=== PATIENT | male | born 1985 | race Caucasian/White ===

== ENCOUNTER 2018-08-01 23:19 | Emergency (ER) | payer SELFPAY ==
[~2018-08-01] VITALS: Ht 165.1 cm; Wt 62.7 kg
[2018-08-01] MEDS ORDERED: DiphenhydrAMINE HCL 50 MG/ML VIAL IM ONE (23:30)
[2018-08-01] MEDS ORDERED: LORazepam 2 MG/ML VIAL IM ONE (23:30)
[2018-08-01] MEDS ORDERED: HALOPERIDOL LACTATE 5 MG/ML VIAL IM ONE (23:30)
[2018-08-01 23:39] LABS: GLUCOSE,POINT OF CARE 90 MG/DL (70-110)
[2018-08-01 23:59] LABS: BASOPHILS % (AUTO) 0.6 % (0.0-2.0); EOSINOPHILS % (AUTO) 0.6 % (1.0-6.0); HEMATOCRIT 40.1 % (41-53); HEMOGLOBIN 14.1 g/dL (13.5-17.5); LYMPHOCYTES # (AUTO) 3.1 K/uL (1.0-4.8); MEAN CORPUSCULAR HEMOGLOBIN 30.7 pg (26.0-34.0); MEAN CORPUSCULAR HGB CONC 35.1 G/dL (31.0-37.0); MEAN CORPUSCULAR VOLUME 88 fL (80-100); MONOCYTES # (AUTO) 0.5 K/uL (0.1-1.0); MONOCYTES % (AUTO) 7.7 % (2.0-9.0); NEUTROPHILS # (AUTO) 3.2 K/uL (1.8-7.7); NEUTROPHILS % (AUTO) 46.1 % (40.0-70.0); PLATELET COUNT (AUTO) 213 K/uL (150-450); RED BLOOD CELL COUNT(AUTO) 4.58 MIL/uL (4.50-5.90); RED CELL DISTRIBUTION WIDTH 12.9 % (11.5-14.5)
[2018-08-02 00:17] LABS: ALANINE AMINOTRANSFERASE 28 U/L (12-78); ALBUMIN 3.9 g/dL (3.4-5.0); ALKALINE PHOSPHATASE 103 U/L (46-116); ANION GAP 15 mmol/L (8-16); ASPARTATE AMINOTRANSFERASE 25 U/L (15-37); BILIRUBIN,TOTAL 0.4 mg/dL (0.1-1.0); CARBON DIOXIDE 24 mmol/L (22-29); CHLORIDE 104 mmol/L (98-107); CREATININE 0.93 mg/dL (0.60-1.30); GLOMERULAR FILTR. RATE CALC > 60 mL/min (>60); GLUCOSE,RANDOM 98 mg/dL (70-110); SODIUM SERUM 143 mmol/L (136-145); TOTAL PROTEIN, SERUM 8.1 g/dL (6.4-8.2); UREA NITROGEN, BLOOD 7 mg/dL (7-18)
[2018-08-02 02:28] LABS: APPEARANCE,URINE CLEAR (CLEAR); BILIRUBIN,URINE NEGATIVE (NEGATIVE); GLUCOSE, URINE (UA) NEGATIVE (NEGATIVE); KETONES,URINE NEGATIVE (NEGATIVE); LEUKOCYTE ESTERASE ,URINE NEGATIVE (NEGATIVE); NITRATE,URINE NEGATIVE (NEGATIVE); OCCULT BLOOD,URINE NEGATIVE (NEGATIVE); PH,URINE 6.5 (5.0-8.0); PROTEIN,URINE NEGATIVE (NEGATIVE); UROBILINOGEN,URINE 0.2 mg/dL (<=1.0)
[2018-08-02 02:32] LABS: AMPHET/METH SCREEN,URINE POSITIVE (NEGATIVE); BARBITURATE SCREEN, URINE POSITIVE (NEGATIVE); BENZODIAZEPINES SCREEN,URINE NEGATIVE (NEGATIVE); CANNABINOID SCREEN,URINE NEGATIVE (NEGATIVE); COCAINE SCREEN,URINE POSITIVE (NEGATIVE); METHADONE SCREEN, URINE NEGATIVE (NEGATIVE); OPIATE SCREEN,URINE NEGATIVE (NEGATIVE)
[2018-08-02 02:33] LABS: PHENCYCLIDINE SCREEN,URINE NEGATIVE (NEGATIVE)
[2018-08-02 02:45] LABS: BACTERIA,URINE None Seen /HPF (None Seen); RBC,URINE 0-2 /HPF (0-2); WBC,URINE None Seen /HPF (0-5)
[2018-08-02] MEDS ORDERED: HALOPERIDOL 5 MG TABLET PO ONE (02:45)
[2018-08-02] MEDS ORDERED: POTASSIUM CHLORIDE 10% 40 MEQ/30 ML LIQUID UDCUP PO ONE (05:45)
[2018-08-02 12:00] VITALS: BP 126/64
== END 2018-08-02 12:14 | disposition home or self-care (01) ==
LOC: EMS 23:22
DX: F22 Delusional disorders (principal); F41.9 Anxiety disorder, unspecified; E87.6 Hypokalemia; F10.129 Alcohol abuse with intoxication, unspecified; F15.10 Other stimulant abuse, uncomplicated; F14.10 Cocaine abuse, uncomplicated; F17.210 Nicotine dependence, cigarettes, uncomplicated; Z59.0 Homelessness; Y90.7 Blood alcohol level of 200-239 mg/100 ml
CPT/HCPCS: 36415; 80053; 80307; 81001; 82962; 85025; 96372; 99284; 99406; G0480; J1630; 51701; J1200; J2060

== ENCOUNTER 2018-08-24 20:39 | Emergency (ER) | payer MEDICAID ==
[~2018-08-24] VITALS: Ht 172.7 cm; Wt 59.1 kg
[2018-08-24] MEDS ORDERED: SERT50TA12 PO (20:52)
[2018-08-24] MEDS ORDERED: OMEP20 PO (20:52)
[2018-08-24] MEDS ORDERED: LIB5 PO (20:52)
[2018-08-24 22:32] VITALS: BP 120/80
== END 2018-08-24 22:46 | disposition home or self-care (01) ==
LOC: EMS 20:39
DX: F10.10 Alcohol abuse, uncomplicated (principal); F17.210 Nicotine dependence, cigarettes, uncomplicated; F14.90 Cocaine use, unspecified, uncomplicated; F19.90 Other psychoactive substance use, unspecified, uncomplicated

== ENCOUNTER 2019-02-13 02:38 | Emergency (ER) | payer MEDICAID, OTHER ==
[~2019-02-13] VITALS: Ht 165.1 cm; Wt 50.0 kg
[~2019-02-13 02:38] MED LIST: LIB5 PO; OMEP20 PO; SERT50TA12 PO
[2019-02-13 04:12] LABS: BASOPHILS % (AUTO) 0.7 % (0.0-2.0); EOSINOPHILS % (AUTO) 0.3 % (1.0-6.0); HEMATOCRIT 38.5 % (41-53); HEMOGLOBIN 13.4 g/dL (13.5-17.5); LYMPHOCYTES # (AUTO) 2.1 K/uL (1.0-4.8); LYMPHOCYTES % (AUTO) 24.8 % (22.0-44.0); MEAN CORPUSCULAR HEMOGLOBIN 31.5 pg (26.0-34.0); MEAN CORPUSCULAR HGB CONC 34.9 G/dL (31.0-37.0); MEAN CORPUSCULAR VOLUME 90 fL (80-100); MONOCYTES # (AUTO) 0.7 K/uL (0.1-1.0); MONOCYTES % (AUTO) 7.9 % (2.0-9.0); NEUTROPHILS # (AUTO) 5.5 K/uL (1.8-7.7); NEUTROPHILS % (AUTO) 66.3 % (40.0-70.0); PLATELET COUNT (AUTO) 206 K/uL (150-450); RED BLOOD CELL COUNT(AUTO) 4.26 MIL/uL (4.50-5.90); RED CELL DISTRIBUTION WIDTH 13.1 % (11.5-14.5)
[2019-02-13 04:20] LABS: ANION GAP 12 mmol/L (8-16); CALCIUM, TOTAL 8.5 mg/dL (8.8-10.5); CARBON DIOXIDE 24 mmol/L (22-29); CHLORIDE 103 mmol/L (98-107); CREATININE 1.05 mg/dL (0.60-1.30); GLOMERULAR FILTR. RATE CALC > 60 mL/min (>60); GLUCOSE,RANDOM 94 mg/dL (70-110); POTASSIUM 3.6 mmol/L (3.5-5.1); SODIUM SERUM 139 mmol/L (136-145); UREA NITROGEN, BLOOD 16 mg/dL (7-18)
[2019-02-13 04:27] LABS: ALANINE AMINOTRANSFERASE 22 U/L (12-78); ALBUMIN 3.8 g/dL (3.4-5.0); ALKALINE PHOSPHATASE 101 U/L (46-116); ASPARTATE AMINOTRANSFERASE 23 U/L (15-37); BILIRUBIN,TOTAL 0.4 mg/dL (0.1-1.0); TOTAL PROTEIN, SERUM 7.7 g/dL (6.4-8.2)
[2019-02-13 11:34] LABS: AMPHET/METH SCREEN,URINE POSITIVE (NEGATIVE); BARBITURATE SCREEN, URINE NEGATIVE (NEGATIVE); BENZODIAZEPINES SCREEN,URINE POSITIVE (NEGATIVE); CANNABINOID SCREEN,URINE NEGATIVE (NEGATIVE); COCAINE SCREEN,URINE NEGATIVE (NEGATIVE); METHADONE SCREEN, URINE NEGATIVE (NEGATIVE); OPIATE SCREEN,URINE NEGATIVE (NEGATIVE); PHENCYCLIDINE SCREEN,URINE NEGATIVE (NEGATIVE)
[2019-02-13 12:12] VITALS: BP 121/89
== END 2019-02-13 13:03 | disposition home or self-care (01) ==
LOC: EMS 02:40
DX: S70.11XA Contusion of right thigh, initial encounter (principal); S40.012A Contusion of left shoulder, initial encounter; F10.20 Alcohol dependence, uncomplicated; F17.210 Nicotine dependence, cigarettes, uncomplicated; F11.90 Opioid use, unspecified, uncomplicated; F15.90 Other stimulant use, unspecified, uncomplicated; Z98.890 Other specified postprocedural states; Y29.XXXA Contact with blunt object, undetermined intent, initial encounter; Y93.89 Activity, other specified; Y92.89 Other specified places as the place of occurrence of the external cause; Y99.8 Other external cause status
CPT/HCPCS: 36415; 70450; 71250; 72125; 72192; 73552; 73562; 73590; 74150; 80053; 80307; 85025; 99285; G0480

== ENCOUNTER 2019-02-17 21:49 | Emergency (ER) | payer OTHER ==
[~2019-02-17] VITALS: Ht 162.6 cm; Wt 58.2 kg
[2019-02-17 22:48] LABS: BASOPHILS % (AUTO) 0.7 % (0.0-2.0); EOSINOPHILS % (AUTO) 1.2 % (1.0-6.0); HEMATOCRIT 36.5 % (41-53); HEMOGLOBIN 12.7 g/dL (13.5-17.5); LYMPHOCYTES % (AUTO) 33.5 % (22.0-44.0); MEAN CORPUSCULAR HEMOGLOBIN 31.8 pg (26.0-34.0); MEAN CORPUSCULAR HGB CONC 34.7 G/dL (31.0-37.0); MEAN CORPUSCULAR VOLUME 91 fL (80-100); MONOCYTES # (AUTO) 0.4 K/uL (0.1-1.0); MONOCYTES % (AUTO) 6.9 % (2.0-9.0); NEUTROPHILS # (AUTO) 3.4 K/uL (1.8-7.7); NEUTROPHILS % (AUTO) 57.7 % (40.0-70.0); PLATELET COUNT (AUTO) 254 K/uL (150-450); RED BLOOD CELL COUNT(AUTO) 3.99 MIL/uL (4.50-5.90); RED CELL DISTRIBUTION WIDTH 13.4 % (11.5-14.5)
[2019-02-17 22:59] LABS: ANION GAP 11 mmol/L (8-16); CALCIUM, TOTAL 8.4 mg/dL (8.8-10.5); CARBON DIOXIDE 25 mmol/L (22-29); CHLORIDE 104 mmol/L (98-107); CREATININE 0.97 mg/dL (0.60-1.30); GLOMERULAR FILTR. RATE CALC > 60 mL/min (>60); GLUCOSE,RANDOM 120 mg/dL (70-110); POTASSIUM 4.2 mmol/L (3.5-5.1); SODIUM SERUM 140 mmol/L (136-145); UREA NITROGEN, BLOOD 13 mg/dL (7-18)
[2019-02-17 23:03] LABS: ALANINE AMINOTRANSFERASE 18 U/L (12-78); ALBUMIN 3.6 g/dL (3.4-5.0); ALKALINE PHOSPHATASE 104 U/L (46-116); ASPARTATE AMINOTRANSFERASE 24 U/L (15-37); BILIRUBIN,TOTAL 0.2 mg/dL (0.1-1.0); TOTAL PROTEIN, SERUM 7.3 g/dL (6.4-8.2)
[2019-02-17] MEDS ORDERED: SODIUM CHLORIDE 0.9% 1,000 ML IV ONE (23:15)
[2019-02-17 23:48] LABS: CREATINE KINASE, TOTAL ONLY 328 U/L (39-308); LIPASE 47 U/L (73-393)
[2019-02-18] MEDS ORDERED: KETOROLAC TROMETHAMINE 30 MG/ML VIAL IVP ONE
[2019-02-18 00:27] LABS: AMPHET/METH SCREEN,URINE POSITIVE (NEGATIVE); BARBITURATE SCREEN, URINE NEGATIVE (NEGATIVE); BENZODIAZEPINES SCREEN,URINE POSITIVE (NEGATIVE); CANNABINOID SCREEN,URINE POSITIVE (NEGATIVE); COCAINE SCREEN,URINE NEGATIVE (NEGATIVE); METHADONE SCREEN, URINE NEGATIVE (NEGATIVE); OPIATE SCREEN,URINE NEGATIVE (NEGATIVE); PHENCYCLIDINE SCREEN,URINE NEGATIVE (NEGATIVE)
[2019-02-18 00:38] VITALS: BP 97/65
[2019-02-18] MEDS ORDERED: FAMOTIDINE 10 MG/ML 2 ML VIAL IVP ONE (00:45)
[2019-02-18] MEDS ORDERED: PB/HYOSCY/ATR/SCOP/LIDO/MAALOX 55 ML BOTTLE PO ONE (00:45)
== END 2019-02-18 01:07 | disposition home or self-care (01) ==
LOC: EMS 21:50
DX: F10.129 Alcohol abuse with intoxication, unspecified (principal); R00.2 Palpitations; F41.9 Anxiety disorder, unspecified; F14.10 Cocaine abuse, uncomplicated; F15.10 Other stimulant abuse, uncomplicated; Y90.6 Blood alcohol level of 120-199 mg/100 ml
CPT/HCPCS: 36415; 80053; 80307; 82550; 83690; 83735; 85025; 93005; 96374; 96375; 99285; G0480; J1885; J3490; J7030

== ENCOUNTER 2023-09-17 14:06 | Emergency (ER) | payer OTHER ==
[~2023-09-17] VITALS: Ht 160 cm; Wt 75.0 kg
[~2023-09-17 14:06] MED LIST changes: +ACET-66 PO; +IBUP-1554 PO; -LIB5 PO; -OMEP20 PO; -SERT50TA12 PO
[2023-09-17] MEDS ORDERED: IBUP-2076 PO (14:17)
[2023-09-17] MEDS ORDERED: ERTU15TA PO (14:17)
[2023-09-17] MEDS ORDERED: HYDR-4527 PO (14:17)
[2023-09-17] MEDS ORDERED: ATOR10TA69 PO (14:17)
[2023-09-17] MEDS ORDERED: METF-1211 PO (14:17)
[2023-09-17] MEDS ORDERED: OMEP40CA21 PO (14:17)
[2023-09-17 14:31] LABS: GLUCOMETER DEV NAME(LOC) ERT.5; GLUCOSE,POINT OF CARE 218 MG/DL (70-110)
[2023-09-17 14:57] LABS: BASOPHILS % (AUTO) 1.1 % (0.0-2.0); EOSINOPHILS % (AUTO) 0.6 % (1.0-6.0); HEMOGLOBIN 14.8 g/dL (13.5-17.5); LYMPHOCYTES # (AUTO) 1.6 K/uL (1.0-4.8); LYMPHOCYTES % (AUTO) 29.5 % (22.0-44.0); MEAN CORPUSCULAR HEMOGLOBIN 28.7 pg (26.0-34.0); MEAN CORPUSCULAR HGB CONC 34.3 G/dL (31.0-37.0); MEAN CORPUSCULAR VOLUME 84 fL (80-100); MONOCYTES # (AUTO) 0.4 K/uL (0.1-1.0); MONOCYTES % (AUTO) 6.4 % (2.0-9.0); NEUTROPHILS # (AUTO) 3.5 K/uL (1.8-7.7); NEUTROPHILS % (AUTO) 62.4 % (40.0-70.0); PLATELET COUNT (AUTO) 226 K/uL (150-450); RED BLOOD CELL COUNT(AUTO) 5.14 MIL/uL (4.50-5.90); WHITE BLOOD COUNT (AUTO) 5.6 K/uL (4.5-11.0)
[2023-09-17 15:00] LABS: ANION GAP 9 mmol/L (8-16); CARBON DIOXIDE 25 mmol/L (22-29); CHLORIDE 103 mmol/L (98-107); CREATININE 0.99 mg/dL (0.60-1.30); GLOMERULAR FILTR. RATE CALC > 60 mL/min (>60); GLUCOSE,RANDOM 201 mg/dL (70-110); POTASSIUM 3.8 mmol/L (3.5-5.1); SODIUM SERUM 137 mmol/L (136-145); UREA NITROGEN, BLOOD 9 mg/dL (7-18)
[2023-09-17 15:03] LABS: ALANINE AMINOTRANSFERASE 49 U/L (12-78); ALBUMIN 3.6 g/dL (3.4-5.0); ALKALINE PHOSPHATASE 127 U/L (46-116); ASPARTATE AMINOTRANSFERASE 25 U/L (15-37); BILIRUBIN,TOTAL 0.5 mg/dL (0.1-1.0); TOTAL PROTEIN, SERUM 7.7 g/dL (6.4-8.2)
[2023-09-17 15:19] LABS: TROPONIN I-HIGH SENSITIVITY Less Than 4 ng/L (<76)
[2023-09-17 17:11] VITALS: TEMP 98.1
[2023-09-17 17:15] VITALS: BP 110/70; PULSE 70; RESP 16
[2023-09-17 17:19] LABS: APPEARANCE,URINE CLEAR (CLEAR); BILIRUBIN,URINE NEGATIVE (NEGATIVE); COLOR,URINE LIGHT YELLOW (YELLOW); GLUCOSE, URINE (UA) >=1000 mg/dL (NEGATIVE); KETONES,URINE NEGATIVE (NEGATIVE); LEUKOCYTE ESTERASE ,URINE NEGATIVE (NEGATIVE); NITRATE,URINE NEGATIVE (NEGATIVE); OCCULT BLOOD,URINE NEGATIVE (NEGATIVE); PROTEIN,URINE NEGATIVE (NEGATIVE); SPECIFIC GRAVITIY, URINE 1.033 (1.003-1.030); UROBILINOGEN,URINE <=1.0 mg/dL (<=1.0)
[2023-09-17 17:36] LABS: BACTERIA,URINE None Seen /HPF (None Seen); RBC,URINE None Seen /HPF (0-2); WBC,URINE None Seen /HPF (0-5)
== END 2023-09-17 17:33 | disposition home or self-care (01) ==
LOC: EMS 14:06
DX: R53.83 Other fatigue (principal); E11.9 Type 2 diabetes mellitus without complications; R53.1 Weakness; R42 Dizziness and giddiness; E78.5 Hyperlipidemia, unspecified; Z88.8 Allergy status to other drugs, medicaments and biological substances
CPT/HCPCS: 80053; 81001; 81003; 82962; 84484; 85025; 93005; 99284

== ENCOUNTER 2024-02-10 18:58 | Inpatient (IN) | payer MEDICAID, OTHER ==
[~2024-02-10] VITALS: Ht 160 cm; Wt 71.2 kg
[~2024-02-10 18:58] MED LIST changes: +ATOR10TA69 PO; +ERTU15TA PO; +HYDR-4527 PO; +IBUP-2076 PO; +METF-1211 PO; +OMEP40CA21 PO
[2024-02-10 19:45] LABS: BASOPHILS % (AUTO) 0.7 % (0.0-2.0); EOSINOPHILS % (AUTO) 0 % (1.0-6.0); HEMATOCRIT 50.1 % (41-53); HEMOGLOBIN 17.4 g/dL (13.5-17.5); LYMPHOCYTES # (AUTO) 1.1 K/uL (1.0-4.8); LYMPHOCYTES % (AUTO) 11.8 % (22.0-44.0); MEAN CORPUSCULAR HEMOGLOBIN 29.3 pg (26.0-34.0); MEAN CORPUSCULAR HGB CONC 34.6 G/dL (31.0-37.0); MEAN CORPUSCULAR VOLUME 85 fL (80-100); MONOCYTES # (AUTO) 0.3 K/uL (0.1-1.0); MONOCYTES % (AUTO) 3.2 % (2.0-9.0); NEUTROPHILS # (AUTO) 8.1 K/uL (1.8-7.7); NEUTROPHILS % (AUTO) 84.3 % (40.0-70.0); PLATELET COUNT (AUTO) 288 K/uL (150-450); RED BLOOD CELL COUNT(AUTO) 5.93 MIL/uL (4.50-5.90); RED CELL DISTRIBUTION WIDTH 13.7 % (11.5-14.5); WHITE BLOOD COUNT (AUTO) 9.5 K/uL (4.5-11.0)
[2024-02-10 19:50] LABS: ANION GAP 20 mmol/L (8-16); CALCIUM, TOTAL 7.9 mg/dL (8.8-10.5); CARBON DIOXIDE 21 mmol/L (22-29); CHLORIDE 96 mmol/L (98-107); CREATININE 0.79 mg/dL (0.60-1.30); GLOMERULAR FILTR. RATE CALC > 60 mL/min (>60); GLUCOSE,RANDOM 199 mg/dL (70-110); POTASSIUM 3.8 mmol/L (3.5-5.1); SODIUM SERUM 137 mmol/L (136-145); UREA NITROGEN, BLOOD 9 mg/dL (7-18)
[2024-02-10 20:00] LABS: ALCOHOL, BLOOD (SERUM) 344 mg/dL (0-10)
[2024-02-10 21:04] LABS: AMPHET/METH SCREEN,URINE NEGATIVE (NEGATIVE); BARBITURATE SCREEN, URINE NEGATIVE (NEGATIVE); BENZODIAZEPINES SCREEN,URINE NEGATIVE (NEGATIVE); CANNABINOID SCREEN,URINE NEGATIVE (NEGATIVE); COCAINE SCREEN,URINE NEGATIVE (NEGATIVE); METHADONE SCREEN, URINE NEGATIVE (NEGATIVE); OPIATE SCREEN,URINE NEGATIVE (NEGATIVE); PHENCYCLIDINE SCREEN,URINE NEGATIVE (NEGATIVE)
[2024-02-10 21:09] LABS: ALCOHOL, URINE DRUG SCREEN POSITIVE (NEGATIVE)
[2024-02-10] MEDS ORDERED: LORazepam 2 MG/ML VIAL ONE (21:10)
[2024-02-10 21:12] VITALS: O2SAT 96
[2024-02-10] MEDS: LORazepam 2 MG/ML VIAL IVP ONE ×2 (21:23→21:29)
[2024-02-10] MEDS: ONDANSETRON HCL 4 MG/2 ML VIAL IVP ONE (21:23)
[2024-02-10] MEDS: SODIUM CHLORIDE 0.9% 1,000 ML IV ONE (21:29)
[2024-02-10] MEDS: ChlordiazePOXIDE HCL 25 MG CAPSULE PO ONE (23:52)
[2024-02-11] MEDS ORDERED: OLANZapine 5 MG RAPDIS TABLET PO PRN (00:45)
[2024-02-11 01:54] LABS: COVID AG,FIA SOURCE NASAL SWAB
[2024-02-11 02:09] LABS: SARS-COV2 (COVID) ANTIGEN,FIA Negative (Negative)
[2024-02-11] MEDS: ONDANSETRON 4 MG TABLET PO ONE (02:14)
[2024-02-11 03:25] VITALS: BP 142/82; PULSE 98; RESP 20; TEMP 97; O2SAT 97
[2024-02-11] MEDS ORDERED: INFLUENZA VIRUS VACCINE TVS (6MO+) 2024-25/PF 45 MCG/0.5 ML SYRINGE IM. ONE (05:45)
[2024-02-11] MEDS ORDERED: PNEUMOCOCCAL VACCINE POLYVALENT 0.5 ML SYRINGE [PPSV23] IM. ONE (05:45)
[2024-02-11] MEDS: LORazepam 2 MG TABLET PO PRN (06:43)
[2024-02-11] MEDS ORDERED: ONDANSETRON 4 MG TABLET PO PRN (08:30)
[2024-02-11 08:39] VITALS: BP 128/87; PULSE 109; RESP 19; TEMP 98.4; O2SAT 96
[2024-02-11] MEDS ORDERED: ALBUTEROL SULFATE HFA 90 MCG/PUFF 8 GM INHALER IH PRN (09:00)
[2024-02-11] MEDS ORDERED: BENZOCAINE/MENTHOL LOZENGE PO PRN (09:00)
[2024-02-11] MEDS ORDERED: CloNIDine HCL 0.1 MG TABLET PO PRN (09:00)
[2024-02-11] MEDS ORDERED: PETROLATUM,WHITE 28 GM JELLY TP PRN (09:00)
[2024-02-11] MEDS ORDERED: BACITRACIN 28 GM OINTMENT TP PRN (09:00)
[2024-02-11] MEDS ORDERED: MAGNESIUM HYDROXIDE SUSPENSION 30 ML UDCUP PO PRN (09:00)
[2024-02-11] MEDS ORDERED: IBUPROFEN 600 MG TABLET PO PRN (09:00)
[2024-02-11] MEDS ORDERED: LOPERAMIDE HCL 2 MG CAPSULE PO PRN (09:00)
[2024-02-11] MEDS ORDERED: MAG HYDROX/ALUMINUM HYD/SIMETH ES 30 ML SUSPENSION UDCUP PO PRN (09:00)
[2024-02-11] MEDS ORDERED: ACETAMINOPHEN 325 MG TABLET PO PRN (09:00)
[2024-02-11] MEDS ORDERED: DOCUSATE SODIUM 100 MG CAPSULE PO PRN (09:00)
[2024-02-11] MEDS ORDERED: GLUCAGON,HUMAN RECOMBINANT 1 MG VIAL IM PRN (09:00)
[2024-02-11] MEDS: ONDANSETRON 4 MG TABLET PO PRN (10:24)
[2024-02-11] MEDS: INSULIN LISPRO 100 UNITS/ML SQ PRN (11:46)
[2024-02-11 12:00] LABS: GLUCOMETER DEV NAME(LOC) 3E.C; GLUCOSE,POINT OF CARE 180 MG/DL (70-110)
[2024-02-11] MEDS: MetFORMIN HCL 500 MG TABLET PO SCH (17:18)
[2024-02-11 17:25] LABS: GLUCOMETER DEV NAME(LOC) 3E.C; GLUCOSE,POINT OF CARE 151 MG/DL (70-110)
[2024-02-11] MEDS: OMEPRAZOLE 20 MG CAPSULE PO PRN (18:58)
[2024-02-11 20:29] VITALS: BP 127/93; PULSE 104; RESP 18; TEMP 98.5; O2SAT 97
[2024-02-11] MEDS: ZOLPIDEM TARTRATE 10 MG TABLET PO PRN (22:29)
[2024-02-12 06:36] LABS: GLUCOMETER DEV NAME(LOC) 3E.I 2; GLUCOSE,POINT OF CARE 186 MG/DL (70-110)
[2024-02-12 06:50] LABS: CHOL/HDL RATIO 3.1 (4.2-7.3); THYROID STIMULATING HORMONE 3.66 uIU/mL (0.36-3.74)
[2024-02-12 09:51] VITALS: BP 143/91; PULSE 98; RESP 18; TEMP 97.6; O2SAT 98
[2024-02-12 11:45] LABS: GLUCOMETER DEV NAME(LOC) 3E.I 2; GLUCOSE,POINT OF CARE 194 MG/DL (70-110)
== END 2024-02-12 17:04 | disposition home or self-care (01) | DRG 754 ==
LOC: EMS 18:58 → 3EC 02-11 02:30 → 3EI 02-11 20:41
PROVIDERS: ADMIT Psychiatry & Neurology Psychiatry; ATTEND Psychiatry & Neurology Psychiatry
DX: F32.9 Major depressive disorder, single episode, unspecified (principal); R45.851 Suicidal ideations; F10.229 Alcohol dependence with intoxication, unspecified; E11.65 Type 2 diabetes mellitus with hyperglycemia; Z20.822 Contact with and (suspected) exposure to COVID-19; K59.00 Constipation, unspecified; E78.5 Hyperlipidemia, unspecified; I10 Essential (primary) hypertension; G47.00 Insomnia, unspecified; F41.9 Anxiety disorder, unspecified; Z79.84 Long term (current) use of oral hypoglycemic drugs; Z79.899 Other long term (current) drug therapy; Z88.8 Allergy status to other drugs, medicaments and biological substances
CPT/HCPCS: 80048; 80061; 80307; 82962; 83036; 84443; 85025; 99285; G0480; J2060; J2405; Q0162

== ENCOUNTER 2024-07-05 03:05 | Emergency (ER) | payer MEDICAID, OTHER ==
[~2024-07-05] VITALS: Ht 165.1 cm; Wt 74.2 kg
[~2024-07-05 03:05] MED LIST changes: -ACET-66 PO; -ATOR10TA69 PO; -ERTU15TA PO; -HYDR-4527 PO; -IBUP-1554 PO; -IBUP-2076 PO; -OMEP40CA21 PO
[2024-07-05 03:27] VITALS: TEMP 98.6
[2024-07-05 04:28] LABS: BASOPHILS % (AUTO) 1.3 % (0.0-2.0); EOSINOPHILS % (AUTO) 0.9 % (1.0-6.0); HEMOGLOBIN 15.2 g/dL (13.5-17.5); LYMPHOCYTES # (AUTO) 1.7 K/uL (1.0-4.8); LYMPHOCYTES % (AUTO) 33.5 % (22.0-44.0); MEAN CORPUSCULAR HEMOGLOBIN 31.1 pg (26.0-34.0); MEAN CORPUSCULAR HGB CONC 34.5 G/dL (31.0-37.0); MEAN CORPUSCULAR VOLUME 90 fL (80-100); MONOCYTES # (AUTO) 0.4 K/uL (0.1-1.0); MONOCYTES % (AUTO) 7.4 % (2.0-9.0); NEUTROPHILS % (AUTO) 56.9 % (40.0-70.0); PLATELET COUNT (AUTO) 342 K/uL (150-450); RED BLOOD CELL COUNT(AUTO) 4.89 MIL/uL (4.50-5.90); RED CELL DISTRIBUTION WIDTH 14.8 % (11.5-14.5); WHITE BLOOD COUNT (AUTO) 5.2 K/uL (4.5-11.0)
[2024-07-05 04:38] LABS: ANION GAP 17 mmol/L (8-16); CALCIUM, TOTAL 8.6 mg/dL (8.8-10.5); CARBON DIOXIDE 23 mmol/L (22-29); CHLORIDE 99 mmol/L (98-107); CREATININE 0.74 mg/dL (0.60-1.30); GLOMERULAR FILTR. RATE CALC > 60 mL/min (>60); GLUCOSE,RANDOM 315 mg/dL (70-110); POTASSIUM 3.8 mmol/L (3.5-5.1); SODIUM SERUM 139 mmol/L (136-145); UREA NITROGEN, BLOOD 2 mg/dL (7-18)
[2024-07-05] MEDS: INSULIN REGULAR, HUMAN 100 UNITS/ML SQ ONE ×2 (05:21→06:37)
[2024-07-05 05:34] LABS: ALCOHOL, BLOOD (SERUM) 238 mg/dL (0-10)
[2024-07-05 06:47] VITALS: BP 117/74; PULSE 95; RESP 17; O2SAT 97
[2024-07-05 06:55] LABS: COVID AG,FIA SOURCE NASAL SWAB
[2024-07-05 07:01] LABS: ALCOHOL, URINE DRUG SCREEN POSITIVE (NEGATIVE); AMPHET/METH SCREEN,URINE NEGATIVE (NEGATIVE); BARBITURATE SCREEN, URINE POSITIVE (NEGATIVE); CANNABINOID SCREEN,URINE NEGATIVE (NEGATIVE); COCAINE SCREEN,URINE NEGATIVE (NEGATIVE); METHADONE SCREEN, URINE NEGATIVE (NEGATIVE); OPIATE SCREEN,URINE NEGATIVE (NEGATIVE); PHENCYCLIDINE SCREEN,URINE NEGATIVE (NEGATIVE)
[2024-07-05 07:10] LABS: PH,URINE DRUG SCREEN 6.5 (5.0-8.0)
[2024-07-05 07:13] LABS: BENZODIAZEPINES SCREEN,URINE POSITIVE (NEGATIVE)
[2024-07-05 07:21] LABS: SARS-COV2 (COVID) ANTIGEN,FIA Negative (Negative)
[2024-07-05] MEDS: ACETAMINOPHEN 500 MG TABLET PO ONE (07:47)
[2024-07-05] MEDS: LORazepam 2 MG/ML VIAL IM ONE (07:47)
[2024-07-05] MEDS: ONDANSETRON HCL 4 MG/2 ML VIAL IM ONE (07:48)
[2024-07-05 08:35] LABS: GLUCOMETER DEV NAME(LOC) ER.7; GLUCOSE,POINT OF CARE 150 MG/DL (70-110)
== END 2024-07-05 12:51 | disposition home or self-care (01) ==
LOC: EMS 03:07
DX: S00.83XA Contusion of other part of head, initial encounter (principal); S80.212A Abrasion, left knee, initial encounter; F33.2 Major depressive disorder, recurrent severe without psychotic features; R45.851 Suicidal ideations; E11.65 Type 2 diabetes mellitus with hyperglycemia; F10.129 Alcohol abuse with intoxication, unspecified; E78.5 Hyperlipidemia, unspecified; I10 Essential (primary) hypertension; Z88.8 Allergy status to other drugs, medicaments and biological substances; Z79.84 Long term (current) use of oral hypoglycemic drugs; Z20.822 Contact with and (suspected) exposure to COVID-19; X58.XXXA Exposure to other specified factors, initial encounter; Y93.89 Activity, other specified; Y92.89 Other specified places as the place of occurrence of the external cause; Y99.8 Other external cause status; Y90.9 Presence of alcohol in blood, level not specified
CPT/HCPCS: 99291; 87426; 80048; 82962 ×2; 85025; 36415; 96372; 80307; J2060; J2405; G0480; J1815